=== PATIENT | female | born 1955 | race Caucasian/White ===

== ENCOUNTER 2018-10-19 09:39 | Outpatient (REF) | payer OTHER, SELFPAY ==
[2018-10-19 21:08] LABS: Anion Gap 7.5 mmol/L (3-11); BUN 17 mg/dL (7-18); CO2 28.5 mmol/L (21.0-32.0); CREATININE 0.69 mg/dL (0.55-1.02); Chloride 105 mmol/L (98-107); Glucose 94 mg/dL (70-100); Potassium 4.1 mmol/L (3.5-5.1); Sodium 141 mmol/L (136-145); TSH 3.84 uIU/mL (0.358-3.74)
== END 2018-10-19 09:59 ==
LOC: NCHCN 09:39
PROVIDERS: Visit Provider Nurse Practitioner Family
DX: E03.9 Hypothyroidism, unspecified (principal); E66.9 Obesity, unspecified
CPT/HCPCS: 80048; 84439; 84443

== ENCOUNTER 2018-10-25 09:53 | Outpatient (REF) | payer OTHER, SELFPAY ==
[2018-10-25 22:14] LABS: FREE T4 1.09 ng/dL (0.76-1.46); TSH 4.37 uIU/mL (0.358-3.74)
[2018-10-29 10:11] LABS: Thyroglobulin Antibody 20 U/mL (<61); Thyroperoxidase Antibody 62 U/mL (<61)
== END 2018-10-25 10:13 ==
LOC: NCHCN 09:53
PROVIDERS: Visit Provider Nurse Practitioner Family
DX: R94.6 Abnormal results of thyroid function studies (principal)
CPT/HCPCS: 86376; 84439; 84443

== ENCOUNTER 2019-10-08 10:24 | Outpatient (REF) | payer OTHER, SELFPAY ==
[2019-10-08 22:09] LABS: TSH (W/Ref FT4) 3.69 uIU/mL (0.36-3.74)
== END 2019-10-08 10:44 ==
LOC: NCHCN 10:24
PROVIDERS: PCP Orthopaedic Surgery; Visit Provider Nurse Practitioner Family
DX: E03.9 Hypothyroidism, unspecified (principal)
CPT/HCPCS: 84443

== ENCOUNTER 2020-05-12 18:44 | Outpatient (REF) | payer SELFPAY | END 2020-05-12 19:04 | LOC: NCHCN 18:44 | PROVIDERS: PCP Nurse Practitioner Family; Visit Provider Nurse Practitioner Family | DX: I87.2 Venous insufficiency (chronic) (peripheral) (principal); L97.929 Non-pressure chronic ulcer of unspecified part of left lower leg with unspecified severity | CPT/HCPCS: 87077; 87070; 87186; 87205 ==

== ENCOUNTER 2021-05-09 13:53 | Emergency (ER) | payer MEDICAID, SELFPAY ==
[2021-05-09 13:58] VITALS: BP 185/90; PULSE 66; RESP 16; TEMP 36.3; O2SAT 98
--- NOTE | 2021-05-09 14:00 | DI.RAD_ITS ---
Exam(s) XR FOOT RT COMPLETE EXAM: XR FOOT RT COMPLETE CLINICAL HISTORY: crush injury toes 1-3 TECHNIQUE: COMPARISON: No exams were available for comparison FINDINGS: Three views were obtained. Note is made of prominent hypertrophic spurring at the plantar fascia att achment the calcaneus and also at the talonavicular joint. There are moderate degenerative changes o f the joints of the midfoot. There is a mildly comminuted mildly displaced fracture of the distal phalanx of the great toe at may extend to the proximal articular surface. No other fracture seen. IMPRESSION: RADIATION DOSE DELIVERED: Total DLP
[2021-05-09] MEDS: Lidocaine 2% Multi-Dose 50 ML VIAL (14:05)
[2021-05-09] MEDS: Bupivacaine 0.5% Pres-Free 30 ML VIAL (14:05)
--- NOTE | 2021-05-09 14:27 | W.ED.GENAD ---
Discharge Plan Disposition Patient Disposition: HOME Condition: Stable Discharge Details Clinical Impression: Open fracture of toe of right foot Primary Care Provider: Autumn Denis ED Provider: Dustin Morocho Home Meds and New Rx's Prescriptions: No Action No Known Home Meds RF: 0 Discharge Instructions Instructions: Toe Fracture (ED) Additional Instructions: X-ray reveals you have a toe fracture. Wear trang taping, postop shoe and use cane as needed until reevaluation with orthopedics. I have placed you on the orthopedic list. Rest, elevate, cool compresses, [id number] Tylenol and/or Motrin as directed for discomfort. Keflex as directed. Tetanus status has been updated. Please contact our orthopedic team tomorrow to set up outpatient appointment for reevaluation of your open toe fracture. Medical Decision Making 66-year-old female presents after dropping an object onto her right foot, abrasion to the third toe, injury to the great toe. Will update tetanus, perform digital block, obtain x-ray X-ray reveals fracture of the great toe. Will treat as an open fracture, 500 p.o. Keflex given. 800 p.o. Motrin given Using splinter forceps after the successful digital block, I was able to relocate the proximal nail that is adhered to the nailbed. Now there is no step-off or obvious deformity. There is simply a nail injury through the proximal lateral third. There continues to be a small trickle of blood, no obvious nailbed injury for repair. I do not believe that removing the nail that is thoroughly adhered to the nailbed is appropriate this would likely cause additional trauma. We did discuss that her nail could potentially fall off secondary to the trauma. We discussed pain control, patient will take [id number] Tylenol and/or Motrin, declines a narcotic prescription. The wound was thoroughly cleaned and irrigated, trang tape of the great and second toe, postop shoe applied and patient was given a cane. She was able to ambulate slowly but steadily. Patient is comfortable discharge and has no additional questions or concerns. I did place her on the orthopedic list to help expedite outpatient orthopedic follow-up. She will call the orthopedic office on Monday. Standard discharge and return precautions given This documentation was generated using [employer]wave[employer] system, please disregard any oddities of phrase or misspellings. Imaging Data Radiologic Study: Attestation: I personally reviewed and interpreted this imaging study as follows: Imaging: X-Ray Radiologist's impression: Exam(s) XR FOOT RT COMPLETE EXAM: XR FOOT RT COMPLETE CLINICAL HISTORY: crush injury toes 1-3 TECHNIQUE: COMPARISON: No exams were available for comparison FINDINGS: Three views were obtained. Note is made of prominent hypertrophic spurring at the plantar fascia attachment the calcaneus and also at the talonavicular joint. There are moderate degenerative changes of the joints of the midfoot. There is a mildly comminuted mildly displaced fracture of the distal phalanx of the great toe at may extend to the proximal articular surface. No other fracture seen. HPI General Mode of arrival: wheelchair. Date/Time Provider Initiated Documentation: 05/09/21 14:02. Limitations to Documentation: no limitations. Information obtained by: patient. HPI Narrative: This is a 66-year-old female, denies significant past medical history, presents complaining of right foot injury. Tetanus status is not up-to-date. Shortly prior to arrival she was attempting to obtain an object on a shelf when a large piece of plexiglass came down striking her on the foot, specifically her great toe, second toe and third toe. Denies any other injury, denies numbness, tingling, weakness. Reports the pain is moderate at rest worse with bearing weight. She has not taken any medication for her symptoms. Related Data Home Medications Medication Instructions Recorded Confirmed Unknown [No Known Home Meds] 05/09/21 05/09/21 Allergies Allergy/AdvReac Type Severity Reaction Status Date / Time No Known Allergies Allergy Unverified 05/09/21 14:03 General Stated Complaint: Laceration KRISTIE: 4 Review of Systems Constitutional Constitutional: Denies weakness Musculoskeletal Musculoskeletal: Denies deformity, Reports arthralgias, Denies numbness, Reports stiffness and Denies tingling Integumentary/Breasts Skin/Breast: Denies erythema Neurologic Neurologic: Denies numbness, Denies tingling and Denies weakness [facility] Social History Smoking/Tobacco Use Status: Former Tobacco Use Smoking risk assessment performed?: Yes Alcohol Intake: current Alcohol Intake frequency: 0-2 drinks per day Alcohol type: hard liquor Substance use type: does not use Do you feel safe at home: Yes Do you feel safe in your relationship?: Yes Exam Const General: cooperative, healthy appearing and other (Patient appears uncomfortable) Orientation: alert and awake [facility] Head: normal to inspection, normocephalic and atraumatic Eyes General: appearance normal, both eyes and all related structures Conjunctivae: conjunctivae normal Neck Neck: normal visual inspection, trachea midline and supple Resp Effort & Inspection: normal respiratory effort and able to speak in complete sentences Cardio Rate: regular rate Rhythm: regular rhythm Skin General skin exam: no rashes or lesions noted Neuro General: patient alert, patient awake, moves all extremities and no focal motor deficits Cognition: normal cognition Speech: speech normal Gait: antalgic Motor: muscle tone normal throughout Sensory Exam: no sensory deficits noted Extrem General: full ROM and capillary refill normal Ankle/foot/toe images: 1. Abrasion 2. Diffuse mild discomfort, swelling, ecchymosis. Neuro, vascular, tendon intact. The nail is intact with the nailbed but there is a nail injury along the proximal lateral third. The proximal nail appears to have a step-off when compared to the distal nail, minimal bleeding. Normal capillary refill, no subungual hematoma. Psych Appearance: grossly normal Mental Status: mental status grossly normal Course Vital Signs Vital signs: Vital Signs Temperature 36.3 C L 05/09/21 13:58 Pulse 66 05/09/21 13:58 Respiratory Rate 16 05/09/21 13:58 Blood Pressure 185/90 H 05/09/21 13:58 Pulse Oximetry 98 05/09/21 13:58 Temperature 36.3 C L 05/09/21 13:58 Temperature Source Skin 05/09/21 13:58 Pulse 66 05/09/21 13:58 Respiratory Rate 16 05/09/21 13:58 Respiratory Effort Non-Labored 05/09/21 13:58 Blood Pressure 185/90 H 05/09/21 13:58 Blood Pressure Position Sitting 05/09/21 13:58 Pulse Oximetry 98 05/09/21 13:58 Oxygen Delivery Method Room Air 05/09/21 13:58 Oxygen Flow Rate 0 05/09/21 13:58 Pain Level 10 05/09/21 13:58 Procedures Nerve Block Nerve Block 1: Local Anesthetic: Lidocaine 2%, Bupivicaine 0.5% and other anesthetic ([id number] mixture) Amount of anesthesia used (mL): 8 Side: right Nerve Blocks: digital (Right great) Procedure Successful: Yes Patient Tolerated Procedure: well and no complications Complications: none
[2021-05-09] MEDS: Cephalexin 500 MG CAP PO (15:20)
[2021-05-09] MEDS: Ibuprofen 800 MG TAB PO (15:20)
--- NOTE | 2021-05-09 18:46 | NUR.NOTE ---
cane given to pt. Nursing Note:
--- NOTE | 2021-05-10 15:24 | W.ED.FU ---
Follow Up Plan: I recieved a call from the patient that she was told a prescription for Keflex will be called in to [facility]. Patient states that she called [facility] and was told that no such prescription has been called in. Upon record review, it does appear that Keflex prescription was intended and not prescribed, possible electronic transmission failure. [facility] contacted, pharmacist not available, message for pharmacist left with prescription for Keflex 500 mg 4 times daily p.o., dispense 28 tabs, 0 refills.
== END 2021-05-09 16:30 | disposition home or self-care (01) ==
PROVIDERS: Emergency Provider Physician Assistant; PCP Nurse Practitioner Family
DX: S92.421B Displaced fracture of distal phalanx of right great toe, initial encounter for open fracture (principal); W20.8XXA Other cause of strike by thrown, projected or falling object, initial encounter
CPT/HCPCS: 28490; 90471; 73630

== ENCOUNTER 2022-05-09 16:34 | Outpatient (REF) | payer MEDICARE, MEDICAID, SELFPAY ==
[2022-05-09 21:09] LABS: HGB 13.6 g/dL (11.2-15.7); MCH 31.2 pg (27.0-33.0); MCHC 34.9 % (32.0-36.0); MCV 89 fL (80-95); MPV 9.7 fL (8.0-11.0); Platelet Count 269 10^3/uL (130-400); RBC 4.36 10^6/uL (3.93-5.22); RDW 12.5 % (11.7-14.6); WBC 6.71 10^3/uL (4.4-10.8)
[2022-05-09 21:11] LABS: ALT 30 U/L (14-59); AST 21 U/L (15-37); Albumin 3.9 g/dL (3.4-5.0); Alkaline Phosphatase 87 U/L (46-116); Anion Gap 7.3 mmol/L (3-11); BUN 18 mg/dL (7-18); Bilirubin, Total 0.5 mg/dL (0.2-1.0); CO2 28.7 mmol/L (21.0-32.0); CREATININE 0.7 mg/dL (0.55-1.02); Calcium 9.2 mg/dL (8.5-10.1); Calculated LDL 130 mg/dL (<100); Chloride 106 mmol/L (98-107); Cholesterol 240 mg/dL (<200); Glucose 81 mg/dL (74-106); HDL Cholesterol 65 mg/dL (40-60); Potassium 3.8 mmol/L (3.5-5.1); Sodium 142 mmol/L (136-145); TSH 4.25 uIU/mL (0.36-3.74); Total Protein 7.8 g/dL (6.4-8.2); Triglyceride 226 mg/dL (<150)
== END 2022-05-09 16:35 | disposition home or self-care (01) ==
LOC: NCHCN 16:34
PROVIDERS: PCP Nurse Practitioner Family; Visit Provider Nurse Practitioner Family
DX: E03.9 Hypothyroidism, unspecified (principal); E66.9 Obesity, unspecified
CPT/HCPCS: 80053; 80061; 85027; 84443

== ENCOUNTER 2022-10-25 13:13 | Outpatient (REF) | payer MEDICARE, MEDICAID, SELFPAY ==
[2022-10-25 17:26] LABS: TSH (W/Ref FT4) 4.25 uIU/mL (0.36-3.74)
[2022-10-25 18:00] LABS: FREE T4 0.91 ng/dL (0.76-1.46)
[2022-10-25 23:21] LABS: Thyroglobulin Antibody 16 U/mL (<=60); Thyroperoxidase Antibody 35 U/mL (<=60)
== END 2022-10-25 13:14 | disposition home or self-care (01) ==
LOC: NCHCN 13:13
PROVIDERS: PCP Nurse Practitioner Family; Visit Provider Nurse Practitioner Family
DX: E03.9 Hypothyroidism, unspecified (principal)
CPT/HCPCS: 84439; 84443; 86376; 86800

== ENCOUNTER 2024-01-01 11:37 | Outpatient (REF) | payer OTHER, SELFPAY ==
[2024-01-01 14:38] LABS: HCT 39.1 % (36.0-46.0); HGB 13.9 g/dL (11.2-15.7); MCH 31.9 pg (27.0-33.0); MCHC 35.5 % (32.0-36.0); MCV 90 fL (80-95); MPV 9.4 fL (8.0-11.0); Platelet Count 238 10^3/uL (130-400); RBC 4.36 10^6/uL (3.93-5.22); RDW 12.3 % (11.7-14.6); RDW-SD 39.9 fL; WBC 4.44 10^3/uL (4.4-10.8)
[2024-01-01 14:57] LABS: ALT 23 U/L (14-59); AST 21 U/L (15-37); Albumin 3.7 g/dL (3.4-5.0); Alkaline Phosphatase 84 U/L (46-116); BUN 16 mg/dL (7-18); Bilirubin, Total 0.5 mg/dL (0.2-1.0); CREATININE 0.8 mg/dL (0.55-1.02); Chloride 105 mmol/L (98-107); Estimated GFR 80.71 (mL/min/1.73m2); Glucose 103 mg/dL (74-106); Potassium 4.1 mmol/L (3.5-5.1); Sodium 142 mmol/L (136-145); TSH 3.28 uIU/Ml (0.36-3.74); Total Protein 7.3 g/dL (6.4-8.2)
== END 2024-01-01 11:38 | disposition home or self-care (01) ==
LOC: NCHCN 11:37
PROVIDERS: PCP Orthopaedic Surgery; Visit Provider Nurse Practitioner Family
DX: E03.9 Hypothyroidism, unspecified (principal); E66.8 Other obesity; Z13.0 Encounter for screening for diseases of the blood and blood-forming organs and certain disorders involving the immune mechanism
CPT/HCPCS: 80053; 85027; 84443

== ENCOUNTER 2025-09-02 14:21 | Outpatient (REF) | payer MEDICARE, SELFPAY ==
[2025-09-02 21:10] LABS: HCT 40.9 % (36.0-46.0); HGB 13.9 g/dL (11.2-15.7); MCH 30.9 pg (27.0-33.0); MCHC 34.0 % (32.0-36.0); MCV 91 fL (80-95); MPV 9.4 fL (8.0-11.0); Platelet Count 258 10^3/uL (130-400); RBC 4.50 10^6/uL (3.93-5.22); RDW 12.1 % (11.7-14.6); RDW-SD 40.2 fL; WBC 4.63 10^3/uL (4.4-10.8)
[2025-09-02 21:20] LABS: ALT 22 U/L (10-49); AST 28 U/L (<34); Albumin 4.4 g/dL (3.2-5.0); Alkaline Phosphatase 89 U/L (46-116); Anion Gap 9.2 mmol/L (3-11); BUN 12 mg/dL (9-23); Bilirubin, Total 0.80 mg/dL (0.2-1.2); CO2 25.8 mmol/L (20.0-31.0); Calcium 9.2 mg/dL (8.3-10.6); Chloride 106 mmol/L (98-107); Cholesterol 233 mg/dL (<200); Glucose 91 mg/dL (74-106); HDL Cholesterol 77 mg/dL (>40); Potassium 4.0 mmol/L (3.5-5.1); Sodium 141 mmol/L (136-145); Total Protein 7.4 g/dL (5.7-8.2)
[2025-09-02 21:22] LABS: TSH 4.51 uIU/mL (0.55-4.78)
[2025-09-02 21:35] LABS: Hemoglobin A1C 4.9 % (<5.7)
== END 2025-09-02 14:22 | disposition home or self-care (01) ==
LOC: NCHCN 14:21
PROVIDERS: PCP Orthopaedic Surgery; Visit Provider Nurse Practitioner Family
DX: E02 Subclinical iodine-deficiency hypothyroidism (principal); Z13.228 Encounter for screening for other metabolic disorders; Z13.1 Encounter for screening for diabetes mellitus; Z13.220 Encounter for screening for lipoid disorders; Z13.0 Encounter for screening for diseases of the blood and blood-forming organs and certain disorders involving the immune mechanism
CPT/HCPCS: 80053; 80061; 85027; 83036; 84443

== ENCOUNTER → 2025-09-30 10:00 | Outpatient (CLI) | payer MEDICARE, SELFPAY ==
--- NOTE | 2025-09-30 07:15 | DI.RAD_ITS ---
Exam(s) XR FOOT RT COMPLETE EXAM: XR FOOT RT COMPLETE CLINICAL HISTORY: Right foot pain,[id number]. TECHNIQUE: 2D digital imaging was performed. Three views. COMPARISON: CR XR FOOT RT COMPLETE from 05/09/2021 FINDINGS: BONES: No acute fracture is present. No bony destructive lesion is seen. There is a prominent plantar calcaneal spur. JOINTS: No dislocation present. Flattening of the plantar arch. Advanced degenerative changes are noted at the talar navicular joint. There is prominent dorsal spur. Grossly degenerative changes of the calcaneal cuboid and talocalcaneal joints. SOFT TISSUE: Mild calcification plantar fascia. IMPRESSION: Degenerative changes, greatest at the talonavicular joint. DATA REPOSITORY: RADIATION DOSE DELIVERED:
== END ==
LOC: DI 10:00
PROVIDERS: PCP Orthopaedic Surgery; Visit Provider Podiatrist
DX: M79.671 Pain in right foot (principal); M19.071 Primary osteoarthritis, right ankle and foot
CPT/HCPCS: 73630